=== PATIENT | female | born 1955 ===

== ENCOUNTER 2023-06-07 09:50 | Outpatient (CLI) | payer BC, MEDICARE, SELFPAY ==
--- NOTE | ~2023-06-07 | DEXA_ITS ---
Bone Density Report Name: MARY WALDRON Age: 68 Sex: Female Ethnicity: White Date of : 1955 Indication: postmenopausal; screening for osteoporosis; hysterectomy; Referring Provider: JAMA, HAWA Marcano Study: Bone densitometry was performed. Exam Date: June 07, 2023 Accession number: [id number] Bone Density: Region BMD T-score Z-score Classification AP Spine(L1-L4) 1.011 -0.3 1.5 Normal Femoral Neck (Left) 0.664 -1.7 -0.1 Osteopenia Total Hip (Left) 0.840 -0.8 0.4 Normal Femoral Neck (Right) 0.708 -1.3 0.3 Osteopenia Total Hip (Right) 0.880 -0.5 0.8 Normal Total Hip Mean 0.860 -0.7 0.6 Normal World Health Organization criteria for BMD impression classify patients as: Normal (T-score at or above -1.0), Osteopenia (T-score between -1.0 and -2.5), or Osteoporosis (T-score at or below -2.5). 10-year Fracture Risk(1): Major Osteoporotic Fracture 9.3% Hip Fracture 1.1% Reported Risk Factors: [place] (), Neck BMD=0.664, BMI=28.3 (1) FRAX(R) Version 3.08. Fracture probability calculated for an untreated patient. Fracture probability may be lower if the patient has received treatment. Previous Exams: Region Exam Age BMD T-score BMD Change BMD Change Date g/cm2 vs Baseline vs Previous AP Spine (L1-L4) 06/07/2023 68 1.011 -0.3 0.056 (5.8%)* 0.056 (5.8%)* 11/18/2014 59 0.955 -0.8 Total Hip(Left) 06/07/2023 68 0.840 -0.8 -0.065 (-7.2%) -0.065 (-7.2%) 11/18/2014 59 0.905 -0.3 Total Hip(Right) 06/07/2023 68 0.880 -0.5 -0.044 (-4.7%) -0.044 (-4.7%) 11/18/2014 59 0.924 -0.1 *Denotes significance at 95% confidence level, LSC for AP Spine = 0.022 g/cm2, LSC for Total Hip = 0.027 g/cm2 Clinical Information Provided by Patient: Has used the following medications: Vitamin D, Calcium Has the following medical conditions: Hysterectomy Patient maximum height was 64.5 Menopause Age: 56 Drinks caffeinated beverages Onset of menses at age 13 Number of children 2 Impression: The patient has low bone mass, based on the Left Femoral Neck T-score. The patient has an estimated ten-year risk of hip fracture of 1.1% and an estimated ten-year risk of major fracture of 9.3%, based on the WHO FRAX algorithm. The BMD for the Total Hip(Left) decreased, changing by -7.2% since the last DXA exam. The BMD for the Total Hip(Right) decreased, changing by -4.7% since the last DXA exam. Discussion: BONE DEN
--- NOTE | ~2023-06-07 | MM_ITS ---
EXAMINATION: MM screening ángel BI w verenice HISTORY: Screening mammogram TECHNIQUE: Craniocaudal and mediolateral oblique 3-D tomosynthesis images were obtained and synthetic 2-D images were generated. CAD analysis was submitted and interpreted. COMPARISON: 11/20/2018 bilateral screening mammogram BREAST PARENCHYMAL COMPOSITION: There are scattered areas of fibroglandular density. FINDINGS: Occasional benign calcifications. Stable mild fibroglandular asymmetry. There is no evidenc e of suspicious mass, calcification, or architectural distortion to suggest malignancy in either [address]. There has been no suspicious interval change. IMPRESSION: 1. No mammographic evidence of malignancy. 2. Recommend routine screening mammography in one year. BI-RADS Category 2: Benign finding(s). Reviewed, dictated and finalized at location B.
== END 2023-06-07 09:51 | disposition home or self-care (01) ==
LOC: ANHIMG 09:57
PROVIDERS: PCP Internal Medicine; Visit Provider Internal Medicine
DX: Z12.31 Encounter for screening mammogram for malignant neoplasm of breast (principal); Z78.0 Asymptomatic menopausal state; M85.852 Other specified disorders of bone density and structure, left thigh; M85.851 Other specified disorders of bone density and structure, right thigh
CPT/HCPCS: 77063; 77067; 77080

== ENCOUNTER → 2023-06-26 11:15 | Outpatient (CLI) | payer BC, MEDICARE, SELFPAY ==
--- NOTE | ~2023-06-26 | US_ITS ---
US thyroid INDICATION: Thyroid nodule enlargement. TECHNIQUE: Real-time sonographic images of the thyroid gland were obtained. COMPARISON: No prior studies for comparison. FINDINGS: The right thyroid lobe measures 5.4 x 2.1 x 2.5 cm. The left thyroid lobe measures 4.1 x 1 x 1.3 cm. There is normal echotexture and echogenicity throughout the thyroid gland. In the right lo be there are multiple masses, largest being solid, hypoechoic, wider than tall with irregular margins and no significant echogenic foci measuring 2.4 x 2.3 x 2.6 cm, TR 4 no discrete mass identified in the left lobe.. Normal vascular flow is present. IMPRESSION: 1. Complex 2.6 cm right thyroid mass, TR 4. Ultrasound-guided fine-needle aspiration biopsy recommen ded. Reviewed, dictated and finalized at location A. IMPRESSION: 1. Complex 2.6 cm right thyroid mass, TR 4. Ultrasound-guided fine-needle aspi ration biopsy recommended.
== END ==
PROVIDERS: PCP Internal Medicine; Visit Provider Internal Medicine
DX: E04.1 Nontoxic single thyroid nodule (principal)
CPT/HCPCS: 76536